=== PATIENT | male | born 1965 | race Caucasian/White ===

== ENCOUNTER 2017-09-12 07:14 | Inpatient (IN) ==
--- NOTE | 2017-09-11 20:45 | Discharge Summary ---
<Jelena Green E - Last Filed: 09/11/17 20:43> Date of Encounter: 09/11/17 - Discharge Diagnosis (1) Arthritis of left knee Priority: Primary Status: Chronic (2) HTN (hypertension) Priority: Secondary Status: Chronic Qualifiers: Hypertension type: unspecified Qualified Code(s): I10 - Essential (primary ) hypertension (3) Tobacco dependency Priority: Secondary Status: Chronic (4) HLD (hyperlipidemia) Priority: Secondary Status: Chronic Qualifiers: Hyperlipidemia type: unspecified Qualified Code(s): E78.5 - Hyperlipidemia , unspecified (5) Obesity Priority: Secondary Status: Chronic Qualifiers: Obesity type: unspecified obesity type Obesity classification: unspecified obesity classification Serious obesity comorbidity presence: unspecified whether serious comorbidity present Qualified Code(s): E66.9 - Obesity, unspecified; Z68.41 - Body mass index (BMI) 40.0-44.9, adult; Z68.41 - Body mass index (BMI) 40.0-44.9, adult; Z68.41 - Body mass index (BMI) 40.0-44.9, adult; Z68.41 - Body mass index (BMI) 40.0-44.9, adult (6) 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 [Rx] OxyCODONE Immed Rel [Roxicodone 5 MG] 5 mg PO Q6HR PRN 7 Days #28 tablet [Rx] Lisinopril [Zestril] 10 mg PO DAILY 09/12/17 [History] Pravastatin Sodium [Pravachol] 20 mg PO DAILY 09/12/17 [History] Allergies/Adverse Reactions: 3 Allergy/AdvReac Type Severity Reaction Status Date / Time No Known Allergies Allergy Verified 09/12/17 07:37 Primary care physician: Roxana Regan CNP - Patient Status Disposition: Home, Self-Care Condition: Good - Discharge Instructions Follow Up With: Roxana Regan CNP [Primary Care Provider] - [facility] [Other] - Hospital Course Hospital course: Mr. Cassidy is a 52 year old male - Time Spent with Patient Total time spent providing and/or coordinating discharge services: <SolomonRusseldaniela Burnetteh - Last Filed: 09/13/17 09:30> Date of Encounter: 09/13/17 Time of Encounter: 09:29 - Discharge Diagnosis (1) Status post total left knee replacement Priority: Primary Status: Acute (2) Arthritis of left knee Priority: Primary Status: Chronic (3) HTN (hypertension) Priority: Secondary Status: Chronic Qualifiers: Hypertension type: unspecified Qualified Code(s): I10 - Essential (primary ) hypertension (4) Tobacco dependency Priority: Secondary Status: Chronic (5) HLD (hyperlipidemia) Priority: Secondary Status: Chronic Qualifiers: Hyperlipidemia type: unspecified Qualified Code(s): E78.5 - Hyperlipidemia , unspecified (6) Obesity Priority: Secondary Status: Chronic Qualifiers: Obesity type: unspecified obesity type Obesity classification: adult class 3 (BMI >= 40) Serious obesity comorbidity presence: unspecified whether serious comorbidity present Body mass index: BMI 40.0-44.9 Qualified Code(s) : E66.9 - Obesity, unspecified; Z68.41 - Body mass index (BMI) 40.0-44.9, adult ; Z68.41 - Body mass index (BMI) 40.0-44.9, adult; Z68.41 - Body mass index (BMI ) 40.0-44.9, adult; Z68.41 - Body mass index (BMI) 40.0-44.9, adult (7) 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 Cassidy is a 52 year old male Status post total knee replacement The patient had an uneventful postoperative course. They received antibiotics and physical therapy and were discharged in stable condition. There will follow -up in the office in 2 weeks. - Time Spent with Patient Total time spent providing and/or coordinating discharge services:
[2017-09-12] MEDS ORDERED: CeFAZolin Syr 2,000MG/20 ML 2,000 MG/20 ML SYRINGE IVPB ONE (07:37)
[2017-09-12] MEDS ORDERED: Lidocaine -MPF 1% 2 ML VIAL ID ONE (07:37)
[2017-09-12] MEDS ORDERED: CeFAZolin Syr 3,000MG/30 ML 3,000 MG/30 ML SYRINGE IVPB ONE (07:42)
[2017-09-12] MEDS ORDERED: Ringers Solution, Lactated 1,000 ML IVC SCH ×2 (07:45→15:26)
--- NOTE | 2017-09-12 07:49 | History & Physical Report ---
Date of Encounter: 09/12/17 Time of Encounter: 07:48 24 Hour HP Update - Instructions Instructions: If the History and Physical is less than 30 days old and was completed prior to A.M. admission and or procedure and has NOT been updated on calendar day of procedure please complete this update prior to performing procedure. - Update Patient reports changes in Medical Condition: No Changes in examination, assessment, or condition: No Changes in Medication: No Preop tests/diagnostics Reviewed: Yes Surgery Remains Indicated: Yes Consent for Planned Operative Procedure(s) Verified: Yes - Pre-Operative Checklist Preoperative Checklist Indicated: No Prophylactic Antibiotic Ordered: Yes Is VTE Prophylaxis Indicated?: Yes
[2017-09-12] MEDS ORDERED: Albuterol 2.5 MG/3 ML NEBULIZER IH ONE (07:50)
--- NOTE | 2017-09-12 08:49 | Anesthesia Evaluation PreOp ---
Date of Encounter: 09/12/17 Time of Encounter: 08:47 - Past History Planned Operation: Robotic left total knee arthroplasty Cardiac History: HTN, Hyperlipidemia Pulmonary History: Smoker [employer] History: Denies Any Significant HX Other Medical History: Other (BMI 45) Anesthesia History: No Prior Anesthetic Complications Medications and Allergies Aspirin Enteric Coated [Aspirin EC] 325 mg PO DAILY 21 Days #21 tablet. [Rx] OxyCODONE Immed Rel [Roxicodone 5 MG] 5 mg PO Q6HR PRN 7 Days #28 tablet [Rx] Lisinopril [Zestril] 10 mg PO DAILY 09/12/17 [History] Pravastatin Sodium [Pravachol] 20 mg PO DAILY 09/12/17 [History] 3 Allergy/AdvReac Type Severity Reaction Status Date / Time No Known Allergies Allergy Verified 09/12/17 07:37 - Meds/Allergy Pre-op Review Medications Reviewed: Yes Allergies Reviewed: Yes Beta Blockers on Current Med List: No Anesthesia Results - Labs Laboratory Tests 08/27/17 08/27/17 08/27/17 12:06 12:06 12:06 WBC 7.2 Hgb 15.9 Hct 49.4 Plt Count 199 PT 11.2 INR 1.0 APTT 31.8 Sodium 138 Potassium 4.2 Chloride 106 Carbon Dioxide 26 BUN 13 Creatinine 0.82 Est GFR ( Amer) > 60 Est GFR (Non-Af Amer) > 60 BUN/Creatinine Ratio 16 - Imaging EKG: report reviewed, image reviewed (SINUS RHYTHM POSSIBLE RIGHT VENTRICULAR CONDUCTION DELAY) Anesthesia Exam Last Vital Signs Temp 98.8 F 09/12/17 07:33 Pulse 77 09/12/17 07:33 Resp 18 09/12/17 07:52 BP 125/90 09/12/17 07:33 Pulse Ox 95 09/12/17 07:52 Weight: 133 kg NPO (# of Hours): > 8 hrs - HEENT Pupil (Motor): Pupils equal, EOMI Mallampati: III Teeth: Edentulous Oral Opening: Greater than 3 - [employer] LOC: Oriented [employer] Motor: Normal RUE, Normal LUE, Normal RLE, Normal LLE, Normal Face - Cardiac Rhythm: Regular Murmur: None - Pulmonary Breath Sounds: bilateral Clear Respiratory Effort: Symmetrical Anesthesia Assess/Plan ASA Score: 3 Modified Marley Scale for Level of Consciousness: Cooperative, oriented, and tranquil Anesthetic Plan: General, Regional Monitoring Plan: Standard Monitors Recovery Plan: PACU
[2017-09-12] MEDS ORDERED: *HR* FentaNYL (PF) 100 MCG/2 ML VIAL ONE (11:00)
[2017-09-12] MEDS ORDERED: *HR* Propofol 200 MG/20 ML VIAL IVP ONE (11:00)
[2017-09-12] MEDS ORDERED: *HR* Midazolam HCl 2 MG/2 ML VIAL ONE (11:00)
[2017-09-12] MEDS ORDERED: Lidocaine -MPF 2% 2 ML VIAL ONE (11:02)
[2017-09-12] MEDS ORDERED: Bupivacaine/Clonidine Syringe 1 EACH SYRINGE ONE (12:06)
[2017-09-12] MEDS ORDERED: Ethanol\\Acetic Acid\\Na Ace\\Ben 1,000 ML IRRIG.SOLN IR ONE (12:12)
[2017-09-12] MEDS ORDERED: Acetaminophen IV 1,000 MG/100 ML INFUS..BTL ONE (12:31)
[2017-09-12] MEDS ORDERED: Ondansetron 4 MG/2 ML VIAL ONE (12:48)
[2017-09-12] MEDS ORDERED: Dexamethasone 4 MG/ML VIAL ONE (12:48)
[2017-09-12] MEDS ORDERED: *HR* Magnesium Sulfate 1 GM/2 ML VIAL ONE (12:50)
[2017-09-12] MEDS ORDERED: *HR* HYDROmorphone 2 MG/ML SYRINGE ONE ×2 (12:57→13:45)
--- NOTE | 2017-09-12 13:15 | Anesthesia Procedures ---
Date of Encounter: 09/12/17 Time of Encounter: 12:19 Procedures: Anesthesia - Nerve Block Procedure Date: 09/12/17 Time: 12:19 Allergies/Adv Reactions: nka Pre-op Diagnosis: left knee OA Surgical Procedure: left TKA robotic Checklist: Correct Patient Identifier, Correct procedure, History checked Correct side: Left Blood Thinner: No Monitor Applied: EKG, BP, Pulse Oximetry Supplemental Oxygen via Nasal Cannula (L/min): 2 Sedation: Versed (mg): 2 Sedation: Fentanyl (mcg): 100 Indication: Post Op Analgesia Pre-op Neuro Deficits: No Block Type: Femoral ((Dr Ibanez)), Other (iPACK (Deandre), DANNIE (Jens)) Catheter placed: No Sterile Technique: Yes Ultrasound used: Yes Anatomy identified: Yes Visual spread of Local: Yes Neuro Stimulation: Yes Nerve Stimulator Range: 0.2 - 0.4 mA Blood on Needle Aspiration: No Smooth Injection of Local: Yes Pain with Injection of Local: No Prep: Chlorhexadine Needle: 22 x 50 mm Stimuplex, 21 x 100 mm Stimuplex Local: 0.25% Bupivicaine w/Clonidine 20 mcg/cc (ipack), Ropivacaine (0.5% 30ml ( femoral)), Other (0.25% bupivacaine 20mL - (DANNIE)) Volume (cc): 70 Number of Attempts: 1 Complications: None/effective block Vitals: Vital Signs/O2 Sat/Glucose, Most Recent Temp Pulse Resp BP Pulse Ox 98.8 F 66 16 126/91 96 09/12/17 07:33 09/12/17 12:19 09/12/17 12:19 09/12/17 12:19 09/12/17 12:19
[2017-09-12] MEDS ORDERED: *HR* Labetalol 20 MG/4 ML SYRINGE IVP PRN (13:16)
[2017-09-12] MEDS ORDERED: *HR* Promethazine 25 MG/ML VIAL IVP PRN (13:16)
[2017-09-12] MEDS ORDERED: *HR* HYDROmorphone (PF) 1 MG/ML SYRINGE IVP PRN (13:16)
--- NOTE | 2017-09-12 13:58 | Orthopedic Operative Note ---
Date of procedure: 09/12/17 Pre-op diagnosis: left knee arthritis Post-op diagnosis: same Procedure: Procedure: left robotic-assisted Total knee replacement Estimated blood loss: 300 cc Hardware: Metal and polyethylene replacement. [place] Femur:5 Tibia:6 PS insert: TS 13 Patella: 39 Exam Under anesthesia:3 degrees of flexion contracture 11 degrees of varusas calculated by the robot full flexion and no instability Procedural Notes:grade 4 arthritic changes medial and patellofemoral Operative procedure: The patient was brought to the operating room and placed on the operating room table. After general anesthesia was administered the operative knee was examined. Findings were noted in the exam under anesthesia. The operative extremity was prepped and draped in sterile surgical fashion. The patient received IV antibiotics prior to skin incision. A standard midline incision was made centered over the patella. The incision was made through the skin and subcutaneous tissue. A medial parapatellar tendon approach was performed. Care was taken to preserve tissue along the medial aspect of the patella. And to protect the patella tendon. The deep MCL was released off the medial tibia. The infra patella fat pad was excised. The patella was everted and cut was made at the level of the insertion of the quadriceps and patella tendon. The patella was sized 39 the guide was seated and the lug holes are drilled. Knee was brought into flexion. Patient noted to have Grade 4 athritic changes medial compartment and patellofemoral joint. Steinmann pins were placed in the tibia and the femur for the tibial and femoral arrays respectively. Checkpoints were also placed in the tibia and the femur for calculation purposes. The knee including the femur and the tibial registered. Osteophytes , ACL and PCL were excised at this point. Extension and flexion were assessed with a valgus stress components were adjusted on the computer to balance the knee. Femoral cuts were made first with robotic assistance, these included the anterior cut posterior cuts chamfer cuts. Tibial cut was then performed with robotic assistance as well. Bone fragments were removed, as well as the medial and lateral meniscus. The size 5 femoral guide was seated box cut was made lug holes are drilled. The size 6 tibial tray was seated and prepared with the fin cutter. Trial reduction with the 13 TS Ailyn revealed extension of 0 degree and full flexion. No varus valgus instability. Trial reduction revealed excellent patella tracking. All trial components were removed all bony surfaces were irrigated. Tibias Cemented followed by the femur TS Ailyn size 13 was seated and secured patella. Patient had similar findings for motion and stability. The knee was closed by the PA. The knee was then irrigated out with 2 L of pulse irrigation. The extensor mechanism was closed with #2 FiberWire suture and #2 PDS suture. The subcutaneous tissue was then irrigated and closed deep with #1 PDS suture superficially with 0 PDS suture and skin was closed with zip tie The patient was then placed in a sterile dressing and a postoperative brace extubated and transferred to recovery room in stable condition. Anesthesia: GETA Surgeon: Russel Carbajal Was there an butcher assistant present: No Estimated blood loss (cc): 300 Condition: stable Disposition: PACU
[2017-09-12 15:05] LABS: Hemoglobin 15.3 g/dL (12.9-16.9)
--- NOTE | 2017-09-12 15:05 | Anesthesia Evaluation Post Op ---
Date of Encounter: 09/12/17 Time of Encounter: 15:04 - Vital Signs Vital Signs: Last Vital Signs Temp 97.6 F 09/12/17 14:37 Pulse 71 09/12/17 14:57 Resp 12 09/12/17 14:57 BP 131/79 09/12/17 14:57 Pulse Ox 93 09/12/17 14:57 - Lungs Lungs: Clear Ascult./Percussion - Airway Airway: Non-obstructed - Cardiovascular Regular Rate - Mental Status Mental Status: Alert & Oriented, Answers Appropriately - Pain Pain Scale: 5 - Nausea Vomiting Nausea Vomiting: Not Present - Hydration Hydration: Ice chips - Discharge PostOp Status: Transfer Patient to floor
[2017-09-12] MEDS ORDERED: Temazepam 15 MG CAPSULE PO PRN (15:26)
[2017-09-12] MEDS ORDERED: Naloxone 0.4 MG/ML INJ IVP PRN (15:26)
[2017-09-12] MEDS ORDERED: *HR* OxyCODONE Immed Rel 5 MG TABLET PO PRN (15:26)
[2017-09-12] MEDS ORDERED: Ondansetron 4 MG/2 ML VIAL IVP PRN (15:26)
[2017-09-12] MEDS ORDERED: Sennosides 8.6 MG TABLET PO PRN (15:26)
[2017-09-12] MEDS ORDERED: MOM Conc 10 ML UD.LIQ PO PRN (15:26)
[2017-09-12] MEDS ORDERED: CeFAZolin Syr 3,000MG/30 ML 3,000 MG/30 ML SYRINGE IVPB SCH (16:00)
[2017-09-12] MEDS: *HR* Enoxaparin 30 MG/0.3 ML SYRINGE SQ SCH (16:16)
[2017-09-12] MEDS: *HR* OxyCODONE Immed Rel 5 MG TABLET PO PRN ×2 (16:16→21:17)
[2017-09-12] MEDS ORDERED: *HR* Enoxaparin 30 MG/0.3 ML SYRINGE SQ SCH (18:00)
[2017-09-12] MEDS: *HR* HYDROmorphone (PF) 1 MG/ML SYRINGE IVP PRN (19:13)
[2017-09-12] MEDS: CeFAZolin Syr 3,000MG/30 ML 3,000 MG/30 ML SYRINGE IVPB SCH (20:59)
[2017-09-13] MEDS: *HR* Enoxaparin 30 MG/0.3 ML SYRINGE SQ SCH (04:30)
[2017-09-13] MEDS: *HR* HYDROmorphone (PF) 1 MG/ML SYRINGE IVP PRN (04:34)
[2017-09-13 05:19] LABS: Hematocrit 44.5 % (37.5-50.1); Hemoglobin 14.5 g/dL (12.9-16.9)
[2017-09-13 05:28] LABS: BUN/Creatinine Ratio 21 (6-26); Blood Urea Nitrogen 15 mg/dL (6-20); Calcium 8.6 mg/dL (8.6-10.3); Carbon Dioxide 23 mEq/L (23-29); Chloride 105 mEq/L (98-107); Glucose 151 mg/dL (70-105); Osmolality,Calculated 282 (280-300); Potassium 4.7 mEq/L (3.5-5.1); Sodium 134 mEq/L (136-145); eGFR For African Americans > 60 (> 60); eGFR For Non-African Americans > 60 (> 60)
[2017-09-13] MEDS: CeFAZolin Syr 3,000MG/30 ML 3,000 MG/30 ML SYRINGE IVPB SCH (05:46)
[2017-09-13] MEDS: *HR* OxyCODONE Immed Rel 5 MG TABLET PO PRN ×2 (05:48→09:33)
[2017-09-13 07:36] VITALS: BP 143/84
--- NOTE | 2017-09-13 09:31 | Orthopedics Progress Note ---
Date of Encounter: 09/13/17 Time of Encounter: 09:30 - Assessment and Plan (1) Status post total left knee replacement Current Visit: Yes Status: Acute (2) Arthritis of left knee Current Visit: No Status: Chronic (3) HTN (hypertension) Current Visit: No Status: Chronic Qualifiers: Hypertension type: unspecified Qualified Code(s): I10 - Essential (primary ) hypertension (4) Tobacco dependency Current Visit: No Status: Chronic (5) HLD (hyperlipidemia) Current Visit: No Status: Chronic Qualifiers: Hyperlipidemia type: unspecified Qualified Code(s): E78.5 - Hyperlipidemia , unspecified (6) Obesity Current Visit: No Status: Chronic Qualifiers: Obesity type: unspecified obesity type Obesity classification: adult class 3 (BMI >= 40) Serious obesity comorbidity presence: unspecified whether serious comorbidity present Body mass index: BMI 40.0-44.9 Qualified Code(s) : E66.9 - Obesity, unspecified; Z68.41 - Body mass index (BMI) 40.0-44.9, adult ; Z68.41 - Body mass index (BMI) 40.0-44.9, adult; Z68.41 - Body mass index (BMI ) 40.0-44.9, adult; Z68.41 - Body mass index (BMI) 40.0-44.9, adult (7) 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 Afebrile vital signs stable. Operative extremity: Neurovascularly intact Dressing clean dry and intact Calves nontender Assessment and plan: Continue with postoperative care Discharged today Objective Vital signs: Vital Signs Temp Pulse Resp BP Pulse Ox 09/13/17 07:36 98.9 F 82 16 143/84 96 09/13/17 04:20 98.7 F 72 16 133/80 94 09/12/17 23:22 98.8 F 79 17 132/86 95 09/12/17 19:35 97.5 F L 67 17 143/84 96 09/12/17 17:56 98.5 F 82 16 146/78 94 09/12/17 16:39 98.2 F 89 16 138/66 98 09/12/17 16:00 98.2 F 87 15 136/77 98 09/12/17 15:28 98.4 F 68 16 133/75 96 09/12/17 15:17 98.5 F 71 14 133/82 94 09/12/17 15:07 98.5 F 73 14 130/82 92 09/12/17 14:57 71 12 131/79 93 09/12/17 14:47 73 12 126/81 95 09/12/17 14:37 97.6 F 77 12 131/90 96 09/12/17 12:19 66 16 126/91 96 09/12/17 11:45 67 16 139/90 97 Intake and Output 09/12/17 09/13/17 09/13/17 23:59 07:59 15:59 Intake Total 270 / 270 Output Total 900 / 900 630 / 630 Balance -630 / -630 -630 / -630 Intake: IV Fluids 30 / 30 Ancef Syringe 3,000 MG/30 ML 3, 30 / 30 000 mg In 30 ml @ 200 mls/hr IVPB Q8H RASHIDA Rx#:[id number] Oral 240 / 240 Output: Urine 900 / 900 630 / 630 Other: Meal Dinner Percent of Meal Consumed 80% # Voids 1 - Labs CBC & BMP: 09/13/17 04:58 09/13/17 04:58 Labs: Abnormal lab results Sodium 134 mEq/L (136-145) L 09/13/17 04:58 Glucose 151 mg/dL (70-105) H 09/13/17 04:58 - VTE Documentation of Mechanical Device: Venous foot pump, device Consult Discharge Plan - Plan Referrals: [facility] [Other] Roxana Regan, RESEARCH NEUROPSYCHOLOGIST [Primary Care Provider] -
== END 2017-09-13 13:00 | disposition home or self-care (01) | DRG 302 ==
LOC: SAMDAY 07:14 → 3NENU 15:24
PROVIDERS: ADMIT Orthopaedic Surgery; ATTEND Orthopaedic Surgery